=== PATIENT | female | born 1945 | race Two or more races ===

== ENCOUNTER 2016-07-19 08:22 | Day surgery (SDC) | payer OTHER, MEDICARE ==
[2016-07-15 10:55] VITALS: BP 158/88
[~2016-07-19] VITALS: Ht 172.7 cm; Wt 140.0 kg
[~2016-07-19 08:22] MED LIST: LOSA25TA5 PO
[2016-07-19] MEDS ORDERED: LACTATED RINGERS 1,000 ML IV SCH (09:07)
[2016-07-19] MEDS ORDERED: LIDOCAINE 1%, 2ML SQ PRN (09:30)
[2016-07-19] MEDS ORDERED: FENTANYL PF 250 MCG/5ML ONE (09:58)
[2016-07-19] MEDS ORDERED: MIDAZOLAM 1 MG/ML, 2ML ONE (09:58)
[2016-07-19] MEDS ORDERED: ACETAMINOPHEN 325 MG TABLET PO PRN (11:00)
[2016-07-19] MEDS ORDERED: OXYcodone 5 MG/5 ML ORAL.SOL UDC PO PRN (11:00)
[2016-07-19] MEDS ORDERED: HYDROmorphone 1 MG/ML, 1ML IV PRN (11:00)
[2016-07-19] MEDS ORDERED: METOCLOPRAMIDE 5 MG/ML, 2ML IV PRN (11:00)
[2016-07-19] MEDS ORDERED: LABETALOL 5MG/ML, 20ML IV PRN (11:00)
[2016-07-19] MEDS ORDERED: ALBUTEROL SULFATE 2.5 MG/3 ML NPPB PRN (11:00)
[2016-07-19] MEDS ORDERED: ONDANSETRON 2MG/ML, 2ML IVPush PRN (11:00)
[2016-07-19] MEDS ORDERED: hydrALAzine 20 MG/ML, 1ML IV PRN (11:00)
[2016-07-19] MEDS ORDERED: FENTANYL PF 100 MCG/2ML IV PRN (11:00)
[2016-07-19] MEDS ORDERED: PROMETHAZINE 25 MG/ML, 1ML IV PRN (11:00)
[2016-07-19] MEDS ORDERED: PROPOFOL 10 MG/ML, 50ML ONE (15:57)
[2016-07-19] MEDS ORDERED: PROPOFOL 10 MG/ML, 20ML ONE (15:57)
== END 2016-07-19 13:45 | disposition home or self-care (01) ==
LOC: OUT 08:22
PROVIDERS: ATTEND Specialist
DX: Z12.11 Encounter for screening for malignant neoplasm of colon (principal); K63.5 Polyp of colon; K57.30 Diverticulosis of large intestine without perforation or abscess without bleeding; I10 Essential (primary) hypertension; K21.9 Gastro-esophageal reflux disease without esophagitis; E11.9 Type 2 diabetes mellitus without complications; E66.9 Obesity, unspecified; Z68.42 Body mass index [BMI] 45.0-49.9, adult; J45.909 Unspecified asthma, uncomplicated; M19.90 Unspecified osteoarthritis, unspecified site; Z82.3 Family history of stroke; Z83.3 Family history of diabetes mellitus; Z82.49 Family history of ischemic heart disease and other diseases of the circulatory system; Z72.89 Other problems related to lifestyle
CPT/HCPCS: 45380; 88305; J2250; J2704; J3010; J3490; J7120

== ENCOUNTER → 2016-08-04 | Outpatient (CLI) | payer OTHER, MEDICARE | END | disposition home or self-care (01) | LOC: CFH 14:37 | PROVIDERS: ATTEND Genetic Counselor, MS | DX: Z12.31 Encounter for screening mammogram for malignant neoplasm of breast (principal) | CPT/HCPCS: G0202 ==

== ENCOUNTER → 2016-08-18 | Outpatient (CLI) | payer OTHER, MEDICARE | END | disposition home or self-care (01) | LOC: CVU 11:53 | PROVIDERS: ATTEND Genetic Counselor, MS | DX: M79.661 Pain in right lower leg (principal); M79.662 Pain in left lower leg; I10 Essential (primary) hypertension; J45.909 Unspecified asthma, uncomplicated; R01.1 Cardiac murmur, unspecified; K21.9 Gastro-esophageal reflux disease without esophagitis | CPT/HCPCS: 93922; 93925; 93970 ==

== ENCOUNTER → 2017-02-13 | Outpatient (CLI) | payer OTHER, MEDICARE | END | disposition home or self-care (01) | LOC: CVU 07:02 | PROVIDERS: ATTEND Internal Medicine Cardiovascular Disease | DX: I34.0 Nonrheumatic mitral (valve) insufficiency (principal); I10 Essential (primary) hypertension; J45.909 Unspecified asthma, uncomplicated | CPT/HCPCS: 93306 ==

== ENCOUNTER → 2017-03-28 | Outpatient (CLI) | payer OTHER, MEDICARE | END | disposition home or self-care (01) | LOC: RAD 07:16 | PROVIDERS: ATTEND Genetic Counselor, MS | DX: M17.11 Unilateral primary osteoarthritis, right knee (principal); M22.41 Chondromalacia patellae, right knee; M76.891 Other specified enthesopathies of right lower limb, excluding foot; M25.461 Effusion, right knee; Z98.890 Other specified postprocedural states ==

== ENCOUNTER → 2018-01-12 | Outpatient (CLI) | payer OTHER, MEDICARE ==
[~2018-01-12] MED LIST changes: -LOSA25TA5 PO; +LOSA25TA6 PO
== END | disposition home or self-care (01) ==
LOC: CFH 07:05
PROVIDERS: ATTEND Genetic Counselor, MS
DX: M47.892 Other spondylosis, cervical region (principal); M48.02 Spinal stenosis, cervical region
CPT/HCPCS: 72141

== ENCOUNTER → 2018-09-12 | Outpatient (CLI) | payer MEDICARE, OTHER ==
[~2018-09-12] MED LIST changes: +LOSA25TA25 PO; -LOSA25TA6 PO
== END | disposition home or self-care (01) ==
LOC: CFH 08:50
PROVIDERS: ATTEND Genetic Counselor, MS
DX: Z12.31 Encounter for screening mammogram for malignant neoplasm of breast (principal)
CPT/HCPCS: 77063; 77067

== ENCOUNTER 2018-11-19 16:02 | Inpatient (IN) | payer MEDICARE, MEDICAID ==
[~2018-11-19] VITALS: Ht 170.2 cm; Wt 136.9 kg
--- NOTE | 2018-11-19 16:14 | NUR ---
PT AMBULATORY WITH STEADY GAIT FROM TRIAGE AT THIS TIME.
--- NOTE | 2018-11-19 16:17 | NUR ---
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 PT STATES THE PAIN IS PRESSURE IN FEELING AND DENIES SOB WHEN THIS HAPPENS. PT CURRENTLY RESTING ON GURNEY. NADN. LUIS. SPEAKING WITH MD WHO IS ALSO AT BEDSIDE.
--- NOTE | 2018-11-19 16:22 | NUR ---
PT DENIES CP WHILE AT REST. STATES IT ONLY OCCURS WITH EXERTION.
[2018-11-19] MEDS ORDERED: ASPIRIN 81 MG TABLET CHEW PO ONE (16:30)
[2018-11-19] MEDS ORDERED: ASPIRIN 81 MG TABLET CHEW ONE ×2 (16:35→18:09)
--- NOTE | 2018-11-19 16:36 | NUR ---
PT MEDICATED PER EMAR. RESTING ON GURNEY. NADN. VSS.
[2018-11-19 16:52] LABS: BASOPHILS # (AUTO) 0.04 x10^3/uL (0-0.1); BASOPHILS % (AUTO) 0 % (0-1); EOSINOPHILS # (AUTO) 0.14 x10^3/uL (0-0.4); EOSINOPHILS % (AUTO) 2 % (1-7); LYMPHOCYTES # (AUTO) 2.49 x10^3/uL (1-3.4); LYMPHOCYTES % (AUTO) 26 % (22-44); MD NO; MEAN CORPUSCULAR HEMOGLOBIN 29.2 pg (27.0-34.8); MEAN CORPUSCULAR HGB CONC 32.8 g/dL (32.4-35.8); MEAN CORPUSCULAR VOLUME 89.1 fL (80-100); MEAN PLATELET VOLUME 9.5 fL (7.4-10.4); MONOCYTES # (AUTO) 0.93 x10^3/uL (0.2-0.8); MONOCYTES % (AUTO) 10 % (2-9); NEUTROPHILS % (AUTO) 63 % (42-75); PLATELET COUNT 191 x10^3/uL (130-400); RED BLOOD COUNT 5.11 x10^6/uL (3.82-5.3); RED CELL DISTRIBUTION WIDTH 13.9 % (9.6-15.2)
[2018-11-19 17:00] LABS: ALANINE AMINOTRANSFERASE 23 U/L (12-78); ALBUMIN 3.3 g/dL (3.4-5.0); ANION GAP 9 mmol/L (5-15); CALCIUM 9.4 mg/dL (8.5-10.1); CHLORIDE 104 mmol/L (98-107); CREATININE 0.89 mg/dL (0.55-1.02)
[2018-11-19 17:05] LABS: ALKALINE PHOSPHATASE 94 U/L (45-117); BILIRUBIN,TOTAL 0.6 mg/dL (0.2-1.0); TOTAL PROTEIN 7.5 g/dL (6.4-8.2); TROPONIN I < 0.015 ng/mL (0.000-0.045)
--- NOTE | 2018-11-19 17:34 | NUR ---
PIV STARTED FOR ADMIT AT THIS TIME. PT AWARE OF POC. [facility] AT PT'S BEDSIDE DISCUSSING POC AND ASSESSING PT.
[2018-11-19] MEDS ORDERED: ASPIRIN 325 MG TABLET EC PO ONE (18:00)
[2018-11-19] MEDS ORDERED: NITROGLYCERIN 0.4 MG/SPRAY SL PRN (18:00)
[2018-11-19] MEDS ORDERED: ACETAMINOPHEN 325 MG TABLET PO PRN (18:00)
[2018-11-19] MEDS ORDERED: MORPHINE SULFATE 4 MG/ML, 1ML IV PRN (18:00)
[2018-11-19] MEDS ORDERED: MORPHINE SULFATE 4 MG/ML, 1ML IVPush PRN (18:00)
[2018-11-19] MEDS ORDERED: NITROGLYCERIN 0.4 MG BOTTLE (25 TABS) SL PRN (18:00)
[2018-11-19] MEDS ORDERED: POTASSIUM CHLORIDE 20 MEQ TAB.ER.PRT PO ONE (18:00)
[2018-11-19] MEDS ORDERED: OXYcodone IR 5MG TABLET PO PRN (18:00)
[2018-11-19] MEDS ORDERED: POTASSIUM CHLORIDE 20 MEQ TAB.ER.PRT ONE (18:09)
--- NOTE | 2018-11-19 18:24 | NUR ---
REPORT GIVEN TO CARL VALADEZ AT THIS TIME.
[2018-11-19 18:25] LABS: CHOL/HDL RATIO 3.5; LDL/HDL RATIO 2.2 (0.5-3.0)
[2018-11-19] MEDS: SODIUM CHLORIDE FLUSH 10ML SYR IVF SCH (21:00)
[2018-11-19] MEDS ORDERED: LOSA25TA12 PO (21:12)
[2018-11-19 21:15] VITALS: BP 114/71
[2018-11-19 21:47] LABS: TROPONIN I < 0.015 ng/mL (0.000-0.045)
[2018-11-20 03:05] VITALS: BP 113/74
[2018-11-20 04:05] LABS: ANION GAP 5 mmol/L (5-15); CALCIUM 8.8 mg/dL (8.5-10.1); CHLORIDE 105 mmol/L (98-107)
[2018-11-20 04:09] LABS: TROPONIN I < 0.015 ng/mL (0.000-0.045)
[2018-11-20] MEDS: ASPIRIN 325 MG TABLET EC PO SCH (05:36)
[2018-11-20] MEDS: LOSARTAN 50MG TABLET PO SCH (07:50)
[2018-11-20] MEDS: SODIUM CHLORIDE FLUSH 10ML SYR IVF SCH ×2 (07:56→21:00)
[2018-11-20 08:06] VITALS: BP 118/71
[2018-11-20] MEDS ORDERED: REGADENOSON 0.4 MG/5 ML SYRINGE ONE (09:56)
[2018-11-20 13:23] VITALS: BP 117/73
[2018-11-20] MEDS ORDERED: OMNIPAQUE 350 MG/ML, 150 ML BOTTLE ONE (14:43)
[2018-11-20] MEDS: HEPARIN 5,000 UNITS/ML, 1ML SQ SCH ×2 (15:30→23:00)
[2018-11-20] MEDS: POTASSIUM CHLORIDE 20 MEQ TAB.ER.PRT PO SCH (17:27)
[2018-11-20 19:09] VITALS: BP 111/72
[2018-11-20] MEDS ORDERED: ATORVASTATIN 40 MG TABLET PO SCH (21:00)
[2018-11-21 01:51] VITALS: BP 109/65
[2018-11-21 05:53] LABS: CHLORIDE 104 mmol/L (98-107)
[2018-11-21 05:59] LABS: ALANINE AMINOTRANSFERASE 18 U/L (12-78); ALBUMIN 2.8 g/dL (3.4-5.0); ALKALINE PHOSPHATASE 75 U/L (45-117); ANION GAP 5 mmol/L (5-15); BILIRUBIN,TOTAL 0.9 mg/dL (0.2-1.0); CREATININE 0.73 mg/dL (0.55-1.02); TOTAL PROTEIN 6.5 g/dL (6.4-8.2)
[2018-11-21] MEDS: ASPIRIN 325 MG TABLET EC PO SCH (06:50)
[2018-11-21] MEDS: HEPARIN 5,000 UNITS/ML, 1ML SQ SCH ×2 (07:00→15:00)
[2018-11-21 07:10] VITALS: BP 126/83
[2018-11-21] MEDS ORDERED: METOPROLOL TARTRATE 25 MG TABLET PO SCH ×2 (10:00→18:00)
[2018-11-21] MEDS ORDERED: METOPROLOL TARTRATE 25 MG TABLET ONE (10:00)
[2018-11-21] MEDS: LOSARTAN 50MG TABLET PO SCH (10:04)
[2018-11-21] MEDS: POTASSIUM CHLORIDE 20 MEQ TAB.ER.PRT PO SCH (10:04)
[2018-11-21] MEDS: SODIUM CHLORIDE FLUSH 10ML SYR IVF SCH (10:09)
[2018-11-21] MEDS ORDERED: ASPI-515 PO (11:58)
[2018-11-21] MEDS ORDERED: NITR0.4T28 SL (11:58)
[2018-11-21] MEDS ORDERED: POTA20TA6 PO (11:58)
[2018-11-21] MEDS ORDERED: METO25TA35 PO (11:58)
[2018-11-21 14:10] VITALS: BP 128/83
== END 2018-11-21 17:15 | disposition home or self-care (01) | DRG 309 ==
LOC: ED 17:13 → EDIP 17:14 → ED 17:37 → 5SO 18:46 → DCLOUNGE 11-21 16:58
PROVIDERS: ADMIT Internal Medicine; ATTEND Internal Medicine
DX: R00.0 Tachycardia, unspecified (principal); Z68.42 Body mass index [BMI] 45.0-49.9, adult; R00.2 Palpitations; E66.01 Morbid (severe) obesity due to excess calories; R07.89 Other chest pain; J45.909 Unspecified asthma, uncomplicated; E78.5 Hyperlipidemia, unspecified; I10 Essential (primary) hypertension; E87.6 Hypokalemia; I87.8 Other specified disorders of veins; Z83.3 Family history of diabetes mellitus; Z82.3 Family history of stroke
CPT/HCPCS: 0399T; 36415; 71045; 71275; 78452; 80048; 80053; 80061; 83880; 84439; 84443; 84481; 84484; 85025; 85379; 93005; 93017; 93306; G0378; J1644; J2785; Q9967; A9502